=== PATIENT | male | born 1955 | race Caucasian/White ===

== ENCOUNTER 2016-12-04 17:16 | Emergency (ER) | payer OTHER ==
[2016-12-04 17:20] VITALS: BP 124/58; PULSE 62; RESP 16; TEMP 98.5; O2SAT 99
--- NOTE | 2016-12-04 17:26 | PD ---
Physical Exam Time Seen by Provider: 17:22 Narrative 61yo M told to come to ER by Dr. 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 Nurse called the family twice today and was told to come to ER due to vomiting and dizziness. +chills. Unknown fever. Patient seen in triage. VS reviewed. Patient awaiting bed placement. Data Data Last Documented VS Vital Signs Date Time Temp Pulse Resp B/P Pulse Ox O2 Delivery O2 Flow Rate FiO2 12/04/16 17:20 98.5 62 16 124/58 99 MDM Supervised Visit with STEPHON: Colleen Cash Dec 04, 2016 17:26
[2016-12-04] MEDS ORDERED: SODIUM CHLORIDE 0.9% FLUSH 10 ML FLUSH IV FLUSH PRN (20:45)
[2016-12-04] MEDS ORDERED: SODIUM CHLOR 0.9% 1000 ML INJ 1,000 ML IV SCH (20:49)
[2016-12-04 21:00] VITALS: O2SAT 99
[2016-12-04] MEDS ORDERED: ONDANSETRON HCL 4 MG/2 ML VIAL IVP ONE (21:00)
[2016-12-04 21:15] LABS: AUTOMATED NEUTROPHIL # 15.7 TH/MM3 (1.8-7.7); BASOPHIL % 0.2 % (0.0-2.0); EOSINOPHIL % 0.1 % (0.0-4.0); HEMATOCRIT 41.8 % (39.0-51.0); HEMO FLAGS DIFF FINAL; LYMPH % 5.6 % (9.0-44.0); MEAN CELL VOLUME 89.3 FL (80.0-100.0); MEAN CORPUSCULAR HEMOGLOBIN 30.3 PG (27.0-34.0); MONO % 3.2 % (0.0-8.0); NEUT % 90.9 % (16.0-70.0); PLATELET COUNT 377 TH/MM3 (150-450); RED BLOOD COUNT 4.69 MIL/MM3 (4.50-5.90); RED CELL DISTRIBUTION WIDTH 12.9 % (11.6-17.2); WHITE BLOOD COUNT 17.3 TH/MM3 (4.0-11.0)
[2016-12-04 21:21] LABS: BICARBONATE 30.2 MEQ/L (21.0-32.0); POTASSIUM 3.4 MEQ/L (3.5-5.1)
--- NOTE | 2016-12-04 21:54 | PD ---
HPI Chief Complaint: GI Complaint Time Seen by Provider: 20:26 Travel History International Travel<30 days: No Contact w/Intl Traveler<30days: No Traveled to known affect area: No History of Present Illness HPI The patient's 61. He was advised to come here at the behest of Dr. Multani who yesterday performed a anal fistulectomy x 2 in the office yesterday. The patient reports nausea yesterday after taking Percocet and vomiting today after taking Percocet with persistent nausea and dizziness. He's had no fever. He denies any new or different pain in the rectal area. Location gastrointestinal. Severity moderate. PFSH Past Medical History Diminished Hearing: No Immunizations Current: No Tetanus Vaccination: > 5 Years Influenza Vaccination: No Past Surgical History Other Surgery: Yes (Hernia repair) Social History Alcohol Use: No Tobacco Use: No Substance Use: No Allergies-Medications (Allergen,Severity, Reaction): Coded Allergies: No Known Allergies (Unverified , 12/04/16) Reported Meds & Prescriptions Reported Meds & Active Scripts Active Zofran Odt (Ondansetron Odt) 4 Mg Tab 4 Mg SL Q8HR PRN Review of Systems Except as stated in HPI: all other systems reviewed are Neg Physical Exam Narrative GENERAL: 61-year-old male well-nourished well-developed no acute distress SKIN: Warm and dry. HEAD: Atraumatic. Normocephalic. EYES: Pupils equal and round. No scleral icterus. No injection or drainage. ENT: No nasal bleeding or discharge. Mucous membranes pink and moist. NECK: Trachea midline. No JVD. CARDIOVASCULAR: Regular rate and rhythm. RESPIRATORY: No accessory muscle use. Clear to auscultation. Breath sounds equal bilaterally. GASTROINTESTINAL: Abdomen soft, non-tender, nondistended. Hepatic and splenic margins not palpable. RECTAL: There is no abscess or drainage. There is no evidence of bleed. Fistulectomy appears clean. MUSCULOSKELETAL: Extremities without clubbing, cyanosis, or edema. No obvious deformities. NEUROLOGICAL: Awake and alert. No obvious cranial nerve deficits. Motor grossly within normal limits. Five out of 5 muscle strength in the arms and legs. Normal speech. Data Data Last Documented VS Vital Signs Date Time Temp Pulse Resp B/P Pulse Ox O2 Delivery O2 Flow Rate FiO2 12/04/16 17:20 98.5 62 16 124/58 99 VS reviewed Orders Basic Metabolic Panel (Bmp) (12/04/16 20:44) Complete Blood Count With Diff (12/04/16 20:44) Iv Access Insert/Monitor (12/04/16 20:44) Ecg Monitoring (12/04/16 20:44) Oximetry (12/04/16 20:44) Sodium Chloride 0.9% Flush (Ns Flush) (12/04/16 20:45) Ondansetron Inj (Zofran Inj) (12/04/16 21:00) Sodium Chlor 0.9% 1000 Ml Inj (Ns 1000 M (12/04/16 20:49) Sodium Chlor 0.9% 1000 Ml Inj (Ns 1000 M (12/04/16 22:15) Labs Laboratory Tests Test 12/04/16 20:45 White Blood Count 17.3 TH/MM3 Red Blood Count 4.69 MIL/MM3 Hemoglobin 14.2 GM/DL Hematocrit 41.8 % Mean Corpuscular Volume 89.3 FL Mean Corpuscular Hemoglobin 30.3 PG Mean Corpuscular Hemoglobin 34.0 % Concent Red Cell Distribution Width 12.9 % Platelet Count 377 TH/MM3 Mean Platelet Volume 7.2 FL Neutrophils (%) (Auto) 90.9 % Lymphocytes (%) (Auto) 5.6 % Monocytes (%) (Auto) 3.2 % Eosinophils (%) (Auto) 0.1 % Basophils (%) (Auto) 0.2 % Neutrophils # (Auto) 15.7 TH/MM3 Lymphocytes # (Auto) 1.0 TH/MM3 Monocytes # (Auto) 0.6 TH/MM3 Eosinophils # (Auto) 0.0 TH/MM3 Basophils # (Auto) 0.0 TH/MM3 CBC Comment DIFF FINAL Differential Comment Sodium Level 139 MEQ/L Potassium Level 3.4 MEQ/L Chloride Level 101 MEQ/L Carbon Dioxide Level 30.2 MEQ/L Anion Gap 8 MEQ/L Blood Urea Nitrogen 15 MG/DL Creatinine 0.79 MG/DL Estimat Glomerular Filtration 100 ML/MIN Rate Random Glucose 133 MG/DL Calcium Level 9.4 MG/DL MDM Medical Decision Making Medical Screen Exam Complete: Yes Emergency Medical Condition: Yes Medical Record Reviewed: Yes Differential Diagnosis Abscess, sepsis, rectal bleed, UGIB, medication side effect Narrative Course CBC & BMP Diagram 12/04/16 20:45 2L NS IV, 4mg Zofran, patient reports improvement at approx 950pm. Pt seen and evaluated by Dr Multani who agrees pt is appropriate for discharge. Diagnosis Primary Impression: Nausea & vomiting Qualified Code: R11.2 - Nausea and vomiting, intractability of vomiting not specified, unspecified vomiting type Referrals: Chauncey Multani MD 1 week Additional Instructions: PLEASE FOLLOW UP WITH DR MULTANI NEXT WEEK. FEVER, BLEEDING, OR VOMITING DESPITE ZOFRAN SHOULD PROMPT A VISIT TO THE ER. You have a choice when it comes to health care, and we are glad that you chose [facility]. Hopefully, we have met your expectations on today's visit. You are welcome to return to [facility] at any time, as we are committed to meeting the health care needs of our community. Med/Other Pt SpecificInfo: Prescription(s) given Scripts Ondansetron Odt (Zofran Odt)4 Mg Tab4 Mg SL Q8HR PRN (Nausea/Vomiting) #10 TAB Ref 0 Prov:Pardeep Ricketts MD 12/04/16 Disposition: 01 DISCHARGE HOME Condition: Stable Pardeep Ricketts MD Dec 04, 2016 21:54
[2016-12-04] MEDS ORDERED: ZOFR4TAB3 SL (22:07)
[2016-12-04] MEDS ORDERED: SODIUM CHLOR 0.9% 1000 ML INJ 1,000 ML IV ONE (22:15)
== END 2016-12-04 23:37 | disposition home or self-care (01) ==
LOC: NEPE 17:16
DX: R11.2 Nausea with vomiting, unspecified (principal)
CPT/HCPCS: 80048; 85025; 96361; 96374; 99284; J2405; J7030